=== PATIENT | male | born 1975 | race Caucasian/White ===

== ENCOUNTER 2021-11-23 10:05 | Emergency (ER) | payer BC ==
[~2021-11-23] VITALS: Ht 180.3 cm; Wt 68.5 kg
[2021-11-23] MEDS ORDERED: DIAZEPAM 5 MG TABLET PO ONE (10:30)
[2021-11-23] MEDS ORDERED: KETOROLAC 60MG/2ML VIAL IM ONE (10:45)
[2021-11-23] MEDS ORDERED: DIAZEPAM 5 MG TABLET PO NR (10:45)
[2021-11-23 10:55] VITALS: BP 144/67
[2021-11-23] MEDS ORDERED: IBUP-2029 MT (13:10)
[2021-11-23] MEDS ORDERED: METH-773 MT (13:10)
[2021-11-23] MEDS ORDERED: TRAM50TA3 MT (13:10)
== END 2021-11-23 13:19 | disposition home or self-care (01) ==
LOC: ER 10:05
DX: M54.59 Other low back pain (principal); M62.830 Muscle spasm of back
CPT/HCPCS: 72100; 96372; 99283; J1885